=== PATIENT | male | born 1945 | race Two or more races ===

== ENCOUNTER 2016-12-11 12:48 | Outpatient (CLI) | payer MEDICARE ==
--- NOTE | 2016-12-11 15:48 | Ultrasound Report ---
RIGHT LOWER QUADRANT ULTRASOUND: 12/11/2016 CLINICAL INDICATION: Right-sided pain, mildly elevated white count, evaluate for appendicitis. TECHNIQUE: Real-time scanning was performed with product sales representative static images obtained. FINDINGS: Ultrasound of the right lower quadrant was performed. The appendix is seen in the retrocecal position, and measures 3 mm in diameter. No free fluid or loculated fluid collection is identified in the right lower quadrant. Peristalsing bowel is visualized. IMPRESSION: NORMAL APPENDIX. NO EVIDENCE OF ACUTE APPENDICITIS. Results called to Ayah Matthews PA-C on 12/11/2016 at 1530 hours. JOB #: [id number] EXT JOB #: [id number] DANIEL
== END 2016-12-11 12:49 | disposition home or self-care (01) ==
LOC: DI 12:48
PROVIDERS: ATTEND Physician Assistant
DX: R10.9 Unspecified abdominal pain (principal)
CPT/HCPCS: 76705

== ENCOUNTER 2017-11-24 08:00 | Outpatient (CLI) | payer MEDICARE ==
[2017-11-24 18:49] LABS: BASOPHILS # (AUTO) 0.1 10^3/uL (0.0-0.1); BASOPHILS % (AUTO) 0.6 %; EOSINOPHILS # (AUTO) 0.2 10^3/uL (0.0-0.7); EOSINOPHILS % (AUTO) 2.6 %; HGB - HEMOGLOBIN 14.2 g/dL (14.0-18.0); LYMPHOCYTES # (AUTO) 3.5 10^3/uL (1.5-3.5); LYMPHOCYTES % (AUTO) 40.5 %; MEAN CORPUSCULAR HEMOGLOBIN 31.8 pg (27.0-31.0); MEAN CORPUSCULAR HGB CONC 32.8 g/dL (32.0-36.0); MEAN PLATELET VOLUME 7.6 fL (7.4-11.4); MONOCYTES # (AUTO) 0.6 10^3/uL (0.0-1.0); MONOCYTES % (AUTO) 7.5 %; NEUTROPHILS # (AUTO) 4.2 10^3/uL (1.5-6.6); NEUTROPHILS % (AUTO) 48.8 %; PLT - PLATELET COUNT 243 10^3/uL (130-450); RED BLOOD COUNT 4.45 10^6/uL (4.70-6.10); RED CELL DISTRIBUTION WIDTH 12.6 % (12.0-15.0); WHITE BLOOD COUNT 8.6 x10^3/uL (4.8-10.8)
[2017-11-24 19:07] LABS: HB2 TOTAL 16.2 g/dL; HEMOGLOBIN A1C 0.92 g/dL; HEMOGLOBIN A1C % 7.3 % (4.6-6.2)
[2017-11-24 19:13] LABS: ALBUMIN 4.4 g/dL (3.2-5.5); ALBUMIN/GLOBULIN RATIO 1.3 (1.0-2.2); ALKALINE PHOSPHATASE 62 IU/L (42-121); ALT ALANINE AMINOTRANSFERASE 31 IU/L (10-60); AST ASPARTATE AMINOTRANSFERASE 27 IU/L (10-42); BILIRUBIN,TOTAL 1.3 mg/dL (0.2-1.0); BUN - BLOOD UREA NITROGEN 19 mg/dL (6-20); CALCIUM 9.1 mg/dL (8.5-10.3); CARBON DIOXIDE - CO2 25 mmol/L (21-32); CHLORIDE 101 mmol/L (101-111); CHOL/HDL RATIO 3.7 (<5.0); CHOLESTEROL 226 mg/dL; GFR - MDRD 74 (>89); GLUCOSE 145 mg/dL (70-100); HDL CHOLESTEROL 61 mg/dL; LDL CHOLESTEROL,CALCULATED 144 mg/dL; LDL/HDL RATIO 2.4 (<3.6); SODIUM 134 mmol/L (135-145); TOTAL PROTEIN 7.8 g/dL (6.7-8.2); VLDL CHOLESTEROL 21 mg/dL
== END 2017-11-24 08:01 ==
LOC: LAB.WCP 08:00
PROVIDERS: ATTEND Family Medicine
DX: E11.9 Type 2 diabetes mellitus without complications (principal); I10 Essential (primary) hypertension; E78.5 Hyperlipidemia, unspecified; Z12.5 Encounter for screening for malignant neoplasm of prostate
CPT/HCPCS: 36415; 80053; 80061; 83036; 84443; 85025; G0103; 83721; 84153

== ENCOUNTER 2018-11-03 09:08 | Outpatient (CLI) | payer MEDICARE | END 2018-11-03 09:09 | disposition home or self-care (01) | LOC: RT 09:08 | PROVIDERS: ATTEND Internal Medicine Gastroenterology | DX: E78.5 Hyperlipidemia, unspecified (principal); I10 Essential (primary) hypertension; E11.9 Type 2 diabetes mellitus without complications | CPT/HCPCS: 93005 ==

== ENCOUNTER 2018-11-10 05:55 | Day surgery (SDC) | payer MEDICARE ==
[2018-11-10] MEDS ORDERED: LACTATED RINGERS 1,000 ML IV ONE (06:56)
[2018-11-10] MEDS ORDERED: MIDAZOLAM 2 MG/2 ML VIAL IVP ONE (07:24)
[2018-11-10] MEDS ORDERED: fentaNYL 250 MCG/5 ML VIAL IVP ONE (07:24)
[2018-11-10 08:31] VITALS: BP 128/72
== END 2018-11-10 05:56 | disposition home or self-care (01) ==
LOC: SDS 05:55
PROVIDERS: ATTEND Internal Medicine Gastroenterology
PROC: 0DBM8ZZ Excision of Descending Colon, Via Natural or Artificial Opening Endoscopic (ICD-10-PCS; principal; 2018-11-10 07:30)
DX: Z12.11 Encounter for screening for malignant neoplasm of colon (principal); K63.5 Polyp of colon; I10 Essential (primary) hypertension; E11.9 Type 2 diabetes mellitus without complications; F17.210 Nicotine dependence, cigarettes, uncomplicated; Z79.899 Other long term (current) drug therapy
CPT/HCPCS: 45380; J3010; J7120